=== PATIENT | female | born 1955 | race Caucasian/White ===

== ENCOUNTER 2022-07-29 10:22 | Emergency (ER) | payer OTHER, BC ==
[2022-07-29 10:43] VITALS: BP 128/89; PULSE 83; RESP 18; TEMP 98.6; BMI 27.9
[2022-07-29] MEDS ORDERED: LIDOCAINE 5% TOPICAL PATCH TP ONE (11:01)
[2022-07-29] MEDS ORDERED: IBUPROFEN 400 MG TABLET (FP) PO ONE ×2 (11:01→11:17)
[2022-07-29] MEDS ORDERED: LIDOCAINE 5% TOPICAL PATCH ONE (11:17)
[2022-07-29] MEDS ORDERED: LIDOCAINE PATCH REMOVAL MC SCH (22:00)
== END 2022-07-29 11:34 | disposition home or self-care (01) ==
LOC: FER 10:22
DX: S22.41XA Multiple fractures of ribs, right side, initial encounter for closed fracture (principal); W11.XXXA Fall on and from ladder, initial encounter
CPT/HCPCS: 71101-TC-RT-FY; 99283-25